=== PATIENT | female | born 1940 | race Caucasian/White ===

== ENCOUNTER 2022-04-26 10:19 | Inpatient (IN) | payer MEDICARE, OTHER ==
[2022-04-26] MEDS ORDERED: HYDROmorphone 0.5 MG/0.5 ML Syringe IVPUSH ONE (12:36)
[2022-04-26] MEDS ORDERED: Metoclopramide 10 MG/2 ML SDV IVPUSH ONE (12:36)
[2022-04-26] MEDS ORDERED: Dextrose 5%-Lactated Ringers 1,000 ML IV SCH (12:45)
[2022-04-26 14:10] LABS: ESTIMATED GFR 86 mL/min (>60)
[2022-04-26] MEDS ORDERED: Ondansetron 4 MG/2 ML SDV IV PRN (15:42)
[2022-04-26] MEDS ORDERED: oxyCODONE 5 MG Tab PO PRN (15:42)
[2022-04-26] MEDS ORDERED: Acetaminophen 325 MG Tab PO PRN (15:42)
[2022-04-26] MEDS ORDERED: Docusate Sodium 100 MG Cap PO PRN (15:42)
[2022-04-26] MEDS: Heparin Sodium 5,000 Units/ML Vial SUBCUT SCH (17:22)
[2022-04-26] MEDS: Potassium Chloride 10 MEQ in Premix Bag 1 BAG IV SCH ×4 (17:34→23:25)
[2022-04-26] MEDS ORDERED: Sodium Chloride 0.9% 250 ML IV SCH (20:30)
[2022-04-26] MEDS: Morphine 2 MG/ML SYRINGE IVPUSH PRN (20:36)
[2022-04-26] MEDS: LORazepam 0.5 MG Tab PO PRN (20:37)
[2022-04-27] MEDS: Heparin Sodium 5,000 Units/ML Vial SUBCUT SCH ×4 (00:51→23:49)
[2022-04-27] MEDS: Morphine 2 MG/ML SYRINGE IVPUSH PRN ×6 (00:54→23:48)
[2022-04-27] MEDS: Citalopram 20 MG Tab PO SCH (08:29)
[2022-04-27] MEDS: Donepezil 10 MG Tab PO SCH (08:29)
[2022-04-27] MEDS: Famotidine 20 MG Tab PO SCH (08:29)
[2022-04-27] MEDS: QUEtiapine 25 MG Tab PO SCH (08:30)
[2022-04-27] MEDS ORDERED: Ondansetron 4 MG/2 ML SDV IVPUSH PRN (09:19)
[2022-04-27] MEDS ORDERED: fentaNYL 100 MCG/2 ML SDV IVPUSH PRN (09:19)
[2022-04-27] MEDS ORDERED: Bupivacaine 0.25% 10 ML SDV ONE (11:00)
[2022-04-27] MEDS ORDERED: ceFAZolin 2 GM Vial ONE (11:30)
[2022-04-27] MEDS ORDERED: fentaNYL 100 MCG/2 ML SDV ONE (11:30)
[2022-04-27] MEDS ORDERED: Midazolam 1 MG/ML 2 ML SDV ONE (11:31)
[2022-04-27] MEDS ORDERED: Lactated Ringers 1,000 ML IV SCH (14:30)
[2022-04-27] MEDS: LORazepam 0.5 MG Tab PO PRN (15:07)
[2022-04-27] MEDS ORDERED: LORazepam 2 MG/ML SDV IVPUSH PRN (17:06)
[2022-04-28] MEDS: Morphine 2 MG/ML SYRINGE IVPUSH PRN ×5 (04:02→17:15)
[2022-04-28 08:10] LABS: ESTIMATED GFR 86 mL/min (>60)
[2022-04-28] MEDS: QUEtiapine 25 MG Tab PO SCH (08:44)
[2022-04-28] MEDS: Donepezil 10 MG Tab PO SCH (08:44)
[2022-04-28] MEDS: Famotidine 20 MG Tab PO SCH (08:44)
[2022-04-28] MEDS: Heparin Sodium 5,000 Units/ML Vial SUBCUT SCH ×2 (08:44→17:12)
[2022-04-28] MEDS: Citalopram 20 MG Tab PO SCH (08:44)
[2022-04-28] MEDS ORDERED: Magnesium Sulfate/Water 2 GM in Premix Bag 1 BAG IV ONE (10:00)
[2022-04-29] MEDS: Heparin Sodium 5,000 Units/ML Vial SUBCUT SCH ×3 (00:54→09:07)
[2022-04-29] MEDS: Morphine 2 MG/ML SYRINGE IVPUSH PRN (05:43)
[2022-04-29] MEDS: Citalopram 20 MG Tab PO SCH (08:59)
[2022-04-29] MEDS: QUEtiapine 25 MG Tab PO SCH (08:59)
[2022-04-29] MEDS: Famotidine 20 MG Tab PO SCH (08:59)
[2022-04-29] MEDS: Donepezil 10 MG Tab PO SCH (08:59)
== END 2022-04-29 12:06 | DRG 481 ==
LOC: JD.ED 10:19 → JD.MS 14:28
PROVIDERS: ADMIT Emergency Medicine; ATTEND Internal Medicine
PROC: 0QS634Z Reposition Right Upper Femur with Internal Fixation Device, Percutaneous Approach (ICD-10-PCS; principal; 2022-04-27)
DX: S72.001A Fracture of unspecified part of neck of right femur, initial encounter for closed fracture (principal); M80.051A Age-related osteoporosis with current pathological fracture, right femur, initial encounter for fracture; R47.01 Aphasia; Z66 Do not resuscitate; S72.011A Unspecified intracapsular fracture of right femur, initial encounter for closed fracture; Z51.5 Encounter for palliative care; S51.011A Laceration without foreign body of right elbow, initial encounter; K21.9 Gastro-esophageal reflux disease without esophagitis; E87.6 Hypokalemia; E86.0 Dehydration; E83.42 Hypomagnesemia; G30.9 Alzheimer's disease, unspecified; F02.C0 Dementia in other diseases classified elsewhere, severe, without behavioral disturbance, psychotic disturbance, mood disturbance, and anxiety; Z79.899 Other long term (current) drug therapy; W18.30XA Fall on same level, unspecified, initial encounter; Y92.099 Unspecified place in other non-institutional residence as the place of occurrence of the external cause
CPT/HCPCS: 36415; 71045; 72170; 73552; 73700; 80053; 83735; 83880; 85610; 85730; 86140; 93005; 96365; 96375; 99285; J1170; J2765; J7121; 51701; 51798; 73501-26-RT; 73501-RT; 76000; 76000-26; 85025; 87641; 93010; 99100; 99222; 99233; 99239; A9270-GY; C1713; J0690; J1644; J2060; J2250; J2270; J3010; J3475; J3480; J3490; J7050; J7120